=== PATIENT | female | born 1995 | race African-American/Black ===

== ENCOUNTER 2019-06-23 05:55 | Inpatient (IN) ==
[2019-06-23] MEDS ORDERED: REGLAN PO ONE (05:58)
[2019-06-23] MEDS ORDERED: ZOFRAN IV PRN (05:58)
[2019-06-23] MEDS ORDERED: PEPCID PO ONE (05:58)
[2019-06-23] MEDS ORDERED: PEPCID PO PRN (05:58)
[2019-06-23] MEDS ORDERED: PEPCID IV PRN (05:58)
[2019-06-23] MEDS ORDERED: KEFZOL 1 GM/D5W 1 GM/50 ML IVPB IV PRN (05:58)
[2019-06-23] MEDS ORDERED: STADOL IV PRN (05:58)
[2019-06-23] MEDS ORDERED: TYLENOL PO PRN (05:58)
[2019-06-23] MEDS ORDERED: SODIUM CHLORIDE 0.9% INJ SCH (06:00)
[2019-06-23] MEDS ORDERED: PITOCIN 30 UNITS/NS 30 UNIT/500 ML IV.SOLN IV SCH ×2 (06:00→20:30)
[2019-06-23] MEDS: LR 1,000 ML IV SCH ×3 (06:30→11:08)
[2019-06-23] MEDS ORDERED: MINERAL OIL MISC ONE (06:44)
[2019-06-23] MEDS ORDERED: XYLOCAINE-MPF 1% INJ ONE (06:45)
[2019-06-23 06:52] LABS: BASO# 0.02 X1000 (0.0-0.2); BASO% 0.1 % (0.0-0.8); EOS# 0.13 X1000 (0.0-0.7); EOS% 0.9 % (0.0-10.0); HEMATOCRIT 32.1 % (37.0-47.0); HEMOGLOBIN 10.6 g/dL (12.0-16.0); IMM GRAN# 0.17 X1000 (0.0-0.04); IMM GRAN% 1.2 % (0.0-0.5); LYMPH# 2.63 X1000 (1.2-3.4); MCH 28.8 PG (27-31); MCV 87.2 FL (81-99); MONO# 1.23 X1000 (0.11-0.59); MONO% 8.9 % (1.7-9.3); MPV 11.8 FL (7.4-10.4); NEUT# 9.63 X1000 (1.4-6.5); NEUT% 69.9 % (42.2-75.2); PLT 188 X1000 (130-400); RBC 3.68 XMIL (4.2-5.4); RDW 14.1 % (11.5-14.5); WBC 13.81 X1000 (4.8-10.8)
[2019-06-23 06:53] LABS: BILIRUBIN URINE NEGATIVE (NEGATIVE); BLOOD URINE TRACE (NEGATIVE); CLARITY SL. CLOUDY (CLEAR); COLOR YELLOW; GLUCOSE URINE NEGATIVE (NEGATIVE); KETONE URINE NEGATIVE (NEGATIVE); LEUKOCYTES URINE 2+ (NEGATIVE); NITRITE URINE NEGATIVE (NEGATIVE); PROTEIN URINE TRACE mg/dL (NEGATIVE); URINE SOURCE VOIDED; UROBILINOGEN URINE NORMAL
[2019-06-23] MEDS ORDERED: FENTANYL-BUPIV-NS 2 MCG-0.1% 200 ML EPIDURAL SCH (07:00)
[2019-06-23 07:14] LABS: UR AMPHETAMINES QUAL NONE DETECTED (NONE DETECT); UR BARBITUATES QUAL NONE DETECTED (NONE DETECT); UR BENZODIAZEPIN QUAL NONE DETECTED (NONE DETECT); UR CANNABINOIDS QUAL NONE DETECTED (NONE DETECT); UR COCAINE QUAL NONE DETECTED (NONE DETECT); UR METHADONE QUAL NONE DETECTED (NONE DETECT); UR METHAMPHETAMINE QUAL NONE DETECTED (NONE DETECT); UR OPIATES QUAL NONE DETECTED (NONE DETECT); UR OXYCODONE QUAL NONE DETECTED (NONE DETECT); UR PCP QUAL NONE DETECTED (NONE DETECT); UR PROPOXYPHENE QUAL NONE DETECTED (NONE DETECT); UR TCA QUAL NONE DETECTED (NONE DETECT)
[2019-06-23] MEDS ORDERED: NAROPIN 0.2% INJ ONE (07:15)
--- NOTE | 2019-06-23 13:02 | HISTORY AND PHYSICAL ---
HISTORY OF PRESENT ILLNESS: Ms. Diaz is a 24-year-old G3, P0, 1-1-1 at 40 weeks and 0 days who presents to Labor and Delivery for induction of labor. The patient reports good movement. Admits to irregular contractions. Denies leakage of fluid or vaginal bleeding. MEDICATIONS: Include vitamins. PAST MEDICAL HISTORY: GERD and anxiety. PAST SURGICAL HISTORY: None. ALLERGIES: No known drug allergies. SOCIAL HISTORY: Admits to tobacco use of 1 pack per day. Denies alcohol or drug use. FAMILY HISTORY: Mother with hypertension and diabetes. 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 Denies pelvic inflammatory disease. Menarche at age 13. OBSTETRICAL HISTORY: 1. One delivery at 36 weeks gestation in 2011. 2. One second trimester miscarriage in 2018 at 16 weeks. PHYSICAL EXAMINATION: VITAL SIGNS: Temperature 97.3 degrees, pulse rate 79, respiration rate is 18, blood pressure 115/63, and oxygen pulse ox 100 percent on room air, weight 200 pounds, height 5 feet 5 inches, and BMI 33.3 kg per m square. PHYSICAL EXAMINATION: GENERAL: No acute distress. Alert, awake, and oriented x3. CARDIOVASCULAR: Regular rate and rhythm. RESPIRATORY: Clear to auscultation bilaterally. ABDOMEN: Gravid, nontender to palpation. VAGINAL: Exam shows 5 cm dilated, 80% effaced, and -2 station. Electronic monitoring category 1 tracing. [place] negative contractions. LABORATORY: WBCs 13.81, hemoglobin 10.6, hematocrit 32.1, and platelets 188,000. GBS negative. RPR nonreactive. ASSESSMENT: Mrs. Diaz is a 24-year-old G3, P0 1-1-1 at 40 weeks and 0 days who presents for induction of labor. PLAN: 1. Admit to Labor and Delivery for scheduled induction. 2. Augmentation or induction with Pitocin. 3. Obtain routine labor labs. 4. Estimated weight 8 pounds. 5. Anticipate spontaneous vaginal delivery. 6. Continuous monitoring.
[2019-06-23] MEDS ORDERED: MINERAL OIL PO PRN (20:17)
[2019-06-23] MEDS ORDERED: MOTRIN PO PRN (20:17)
[2019-06-23] MEDS ORDERED: HYDROXYZINE IM PRN (20:17)
[2019-06-23] MEDS ORDERED: CYTOTEC PO PRN (20:17)
[2019-06-23] MEDS ORDERED: BOOSTRIX VACCINE IM ONE (20:17)
[2019-06-23] MEDS ORDERED: PERI MEDS (DERMOPLAST/NUPERCAINAL/TUCKS) MISC PRN (20:17)
[2019-06-23] MEDS ORDERED: AMBIEN PO PRN (20:17)
[2019-06-23] MEDS ORDERED: BENADRYL PO PRN (20:17)
[2019-06-23] MEDS ORDERED: M-M-R II VACCINE SUBQ ONE (20:17)
[2019-06-23] MEDS ORDERED: BENADRYL IV PRN (20:17)
[2019-06-23] MEDS ORDERED: XYLOCAINE-MPF 1% INJ PRN (20:17)
[2019-06-23] MEDS ORDERED: ATARAX PO PRN (20:17)
[2019-06-23] MEDS ORDERED: PITOCIN IM PRN (20:17)
[2019-06-23] MEDS ORDERED: PITOCIN 20 UNITS/NS 20 UNITS/1,000 ML IV.SOLN IV SCH (20:30)
[2019-06-23] MEDS ORDERED: PERICOLACE PO SCH (21:00)
[2019-06-24 07:06] LABS: BASO# 0.02 X1000 (0.0-0.2); BASO% 0.1 % (0.0-0.8); EOS# 0.08 X1000 (0.0-0.7); EOS% 0.6 % (0.0-10.0); HEMATOCRIT 29.4 % (37.0-47.0); HEMOGLOBIN 9.6 g/dL (12.0-16.0); IMM GRAN% 0.7 % (0.0-0.5); LYMPH# 2.51 X1000 (1.2-3.4); LYMPH% 17.5 % (20.5-51.1); MCH 28.5 PG (27-31); MCHC 32.7 g/dL (33-37); MCV 87.2 FL (81-99); MONO# 1.44 X1000 (0.11-0.59); MPV 10.7 FL (7.4-10.4); NEUT# 10.23 X1000 (1.4-6.5); NEUT% 71.1 % (42.2-75.2); PLT 170 X1000 (130-400); RBC 3.37 XMIL (4.2-5.4); RDW 13.8 % (11.5-14.5); WBC 14.38 X1000 (4.8-10.8)
--- NOTE | 2019-06-24 11:46 | OB/GYN PROGRESS NOTE ---
Progress Note OB - . Patient Problems: Current Active Problems Problem Status Onset (spontaneous vaginal delivery) Acute OB Progress Note: Vital Signs - 24 hr 06/23/19 15:30 06/23/19 20:20 06/23/19 20:30 Temperature 97.1 F L 97.1 F L Pulse Rate 78 90 99 H Respiratory Rate 16 18 18 Blood Pressure 100/51 96/54 Blood Pressure [Left Arm] 96/54 139/59 O2 Sat by Pulse Oximetry 100 100 100 06/23/19 20:40 06/23/19 20:50 06/23/19 21:00 Temperature Pulse Rate 75 73 85 Respiratory Rate 18 18 18 Blood Pressure Blood Pressure [Left Arm] 109/52 115/55 122/60 O2 Sat by Pulse Oximetry 98 100 98 06/23/19 21:20 06/23/19 22:10 06/24/19 01:50 Temperature 97.6 F Pulse Rate 82 76 89 Respiratory Rate 18 18 18 Blood Pressure 109/67 109/59 Blood Pressure [Left Arm] 109/67 116/56 O2 Sat by Pulse Oximetry 98 100 06/24/19 04:27 06/24/19 08:08 Temperature 97.5 F L 97.3 F L Pulse Rate 85 67 Respiratory Rate 18 16 Blood Pressure 106/55 102/58 Blood Pressure [Left Arm] O2 Sat by Pulse Oximetry 100 100 Laboratory Results - last 24 hr 06/24/19 06:55 WBC 14.38 H RBC 3.37 L Hgb 9.6 L Hct 29.4 L MCV 87.2 MCH 28.5 MCHC 32.7 L RDW Std Deviation 13.8 Plt Count 170 MPV 10.7 H Immature Gran % (Auto) 0.7 H Neut % (Auto) 71.1 Lymph % (Auto) 17.5 L [place] % (Auto) 10.0 H Eos % (Auto) 0.6 Baso % (Auto) 0.1 Immature Gran # (Auto) 0.10 H Neut # (Auto) 10.23 H Lymph # (Auto) 2.51 [place] # (Auto) 1.44 H Eos # (Auto) 0.08 Baso # (Auto) 0.02 S: Denied fever, chills, N/V, SOB, or chest pain. Pain controlled. Voiding without difficulty. Lochia decreasing; scant. Formula feeding by choice. Desires Depo Provera for control. O: VS: reviewed Gen: NAD; AAOx3 CV: RRR Pulm: CTAB; no rhonchi, wheezing, or rales Abd: soft, non TTP; non-distended; active bowel sounds; fundus firm and below umbilicus Ext: no LE TTP Labs: -Reviewed A&P: 24yo s/p at 40wks, 1. PPD#1 -No concerns -Cont. PNV; start Fe -Anticipate D/C home tomorrow 2. Tob use -Counseled pt on smoking cessation; risk of SIDS 3. Contraception -Depo Provera prior to D/C home
[2019-06-24] MEDS ORDERED: DEPO-PROVERA IM ONE (11:49)
[2019-06-24] MEDS ORDERED: PRECARE PO ONE (11:49)
[2019-06-24] MEDS: FERROUS SULFATE PO SCH (12:32)
[2019-06-24] MEDS: PRECARE PO SCH (12:42)
[2019-06-25] MEDS: FERROUS SULFATE PO SCH (09:32)
[2019-06-25] MEDS: PRECARE PO SCH (09:32)
[2019-06-25 10:59] VITALS: BP 137/60
--- NOTE | 2019-06-25 11:40 | OB/GYN PROGRESS NOTE ---
Progress Note OB - . Patient Problems: Current Active Problems Problem Status Onset (spontaneous vaginal delivery) Acute OB Progress Note: Vital Signs - 24 hr 06/24/19 11:51 06/24/19 16:23 06/24/19 20:20 Temperature 97.1 F L 97.8 F 97.6 F Pulse Rate 67 90 79 Respiratory Rate 18 20 18 Blood Pressure 102/55 107/64 100/56 O2 Sat by Pulse Oximetry 99 99 06/25/19 06:00 06/25/19 08:15 Temperature 97.2 F L Pulse Rate 62 68 Respiratory Rate 18 16 Blood Pressure 119/71 137/60 O2 Sat by Pulse Oximetry 100 S. Patient resting in bed. She is ambulating well, pain is controlled. [place] is light. She is bottle feeding. O. Vitals WNL Gen: NAD Chest: CTAB Heart: RRR Abdomen: soft, gravid, fundus below the umbilicus Ext: No edema A/P 24yo s/p PPD #2. patient doing well. Discharge home today.
--- NOTE | 2019-06-26 07:10 | DISCHARGE SUMMARY ---
ADMISSION DATE: 06/23/2019 DISCHARGE DATE: 06/25/2019 ADMITTING DIAGNOSIS: Intrauterine at 40 weeks, desired induction of labor. DISCHARGE DIAGNOSES: 1. Intrauterine at 40 weeks, desired induction of labor. 2. Delivery of a viable male . HISTORY: Patient is a 24-year-old, G 3, P 1-1-1-2, at 40 weeks and 0 days, who presented for induction of labor. She delivered a male , 7 pounds 3 ounces, with Apgars of 9 and 9. She did well and is stable and ready for discharge. DISCHARGE MEDICATIONS: See medication reconciliation form. DISCHARGE INSTRUCTIONS: Were given and include pelvic rest for 6 weeks. No exercise. Follow up with primary providers at 1 to 2 weeks and again at 6 weeks. cc: Javier Bragg DO
--- NOTE | 2019-06-28 08:30 | OPERATIVE NOTE ---
PROCEDURE DATE: 06/23/2019 PROCEDURE: Vaginal delivery. DESCRIPTION OF PROCEDURE: At 19:50, the patient delivered a viable male vaginally under epidural anesthesia. Infant was bulb suctioned. No nuchal cord was identified. The infant was placed on the patient's abdomen after delivery. The cord was clamped and cut. Placenta was delivered intact with normal 3 vessel cord. The fundus was firm with massage and IV Pitocin. There were no new cervical, vaginal, or perineal lacerations. Male infant, weighing 7 pounds 3 ounces with scores of 9 and 9 at 1 and 5 minutes respectively. EBL was 250 mL. Both mom and are recovering well.
== END 2019-06-25 14:50 | disposition home or self-care (01) | DRG 807 ==
LOC: P.LD 05:55
PROVIDERS: ADMIT Obstetrics & Gynecology; ATTEND Obstetrics & Gynecology